=== PATIENT | male | born 1950 | race Caucasian/White ===

== ENCOUNTER → 2020-12-05 | Outpatient (CLI) | payer MEDICARE ==
[~2020-12-05] MED LIST: ADVAIR 500-501 EACH INH; ASPIRIN CHEWABL81 MG PO; BUSPIRONE HCL15 MG PO; CRESTOR20 MG PO; FISH OIL 1,0001 EACH PO; FLONASE 0.05% N16 GM; FOLIC ACID0.4 MG PO; GLUCOPHAGE XR500 MG PO; INSULIN PUMP; LOPRESSOR 25 MG25 MG PO; LYRICA300 MG PO; NORCO 10-325 T1 EACH PO; PLAVIX 75 MG TA75 MG PO; PRINIVIL10 MG PO; SENTRY SENIOR1 EAC2 PO; SINGULAIR10 MG PO; VITAMIN E400 UNI2 PO; XALATAN OP SOL2.5 ML OP; ZOLOFT100 MG PO
== END ==
LOC: HEART CORB 09:00
DX: Z01.810 Encounter for preprocedural cardiovascular examination (principal); I25.10 Atherosclerotic heart disease of native coronary artery without angina pectoris; I73.9 Peripheral vascular disease, unspecified; R94.31 Abnormal electrocardiogram [ECG] [EKG]; I51.7 Cardiomegaly; I34.0 Nonrheumatic mitral (valve) insufficiency
CPT/HCPCS: 78452; 93306; A9502; J2785